=== PATIENT | female | born 1955 | race Caucasian/White ===

== ENCOUNTER 2018-09-27 09:33 | Emergency (ER) | payer OTHER ==
[~2018-09-27] VITALS: Ht 152.4 cm; Wt 69.4 kg
[2018-09-27 09:37] VITALS: BP 111/56
--- NOTE | 2018-09-27 09:46 | NUR ---
PT AMBULATES TO BED 8
--- NOTE | 2018-09-27 09:50 | NUR ---
C/O CHEST CONGESTION WITH COUGH SINCE MONDAY. PT ALSO COMPLAINS OF HEADACHE WITH PAIN 7/10, PRESSURE, INTERMITTENT. PT STATES SHE COUGHED "RED" SPUTUM. PT REPORTS FEVER, CHILLS, DIARRHEA . DENIES N/V/D; SKIN IS PINK/WARM/DRY; AAOX4 LUNGS CLEAR BL; HR EVEN AND REGULAR;PATIENT STATES PAIN OF 7/10 AT THIS TIME; VSS; PATIENT POSITIONED FOR COMFORT; HOB ELEVATED; BEDRAILS UP X2; BED DOWN. ER MD MADE AWARE OF PT STATUS.
--- NOTE | 2018-09-27 10:27 | NUR ---
Patient being evaluated by physician at bedside.
--- NOTE | 2018-09-27 10:55 | NUR ---
PT TAKEN TO XRAY VIA WHEELCHAIR
[2018-09-27 11:35] VITALS: BP 120/61
--- NOTE | 2018-09-27 11:35 | NUR ---
Patient discharged with v/s stable. Written and verbal after care instructions given and explained. Patient alert, oriented and verbalized understanding of instructions. Ambulatory with steady gait. All questions addressed prior to discharge. ID band removed. Patient advised to follow up with PMD. Rx of zofran, augmentin,tessalon, tamiflu given. Patient educated on indication of medication including possible reaction and side effects. Opportunity to ask questions provided and answered.
== END 2018-09-27 11:35 | disposition home or self-care (01) ==
LOC: MED 09:33
DX: R07.89 Other chest pain (principal); I10 Essential (primary) hypertension; E11.9 Type 2 diabetes mellitus without complications; Z79.84 Long term (current) use of oral hypoglycemic drugs
CPT/HCPCS: 71046; 87804; 99284